=== PATIENT | male | born 1980 | race Asian ===

== ENCOUNTER 2024-10-29 07:11 | Inpatient (IN) | payer MEDICAID ==
[~2024-10-29] VITALS: Ht 167.6 cm; Wt 77.3 kg
[2024-10-29 07:30] LABS: PLATELET COUNT (AUTO) 338 K/uL (150-450); RED BLOOD CELL COUNT(AUTO) 6.23 MIL/uL (4.50-5.90); RED CELL DISTRIBUTION WIDTH 13.3 % (11.5-14.5); WHITE BLOOD COUNT (AUTO) 17.8 K/uL (4.5-11.0)
[2024-10-29 07:40] LABS: CALCIUM, TOTAL 9.4 mg/dL (8.8-10.5); CREATININE 1.4 mg/dL (0.60-1.30); GLOMERULAR FILTR. RATE CALC 55.0 mL/min (>60); GLUCOSE,RANDOM 141.0 mg/dL (70-110); SODIUM SERUM 135.0 mmol/L (136-145); UREA NITROGEN, BLOOD 17.0 mg/dL (7-18)
[2024-10-29 07:44] LABS: ASPARTATE AMINOTRANSFERASE 19.0 U/L (15-37); TOTAL PROTEIN, SERUM 8.7 g/dL (6.4-8.2)
[2024-10-29] MEDS ORDERED: IOHEXOL 350 MG/ML 100 ML VIAL ONE (07:51)
[2024-10-29] MEDS ORDERED: SODIUM CHLORIDE 0.9% 100 ML ONE (07:51)
[2024-10-29] MEDS: SODIUM CHLORIDE 0.9% 1,000 ML IV ONE ×2 (08:13→10:19)
[2024-10-29] MEDS: FAMOTIDINE 20 MG/2 ML VIAL IVP ONE (08:14)
[2024-10-29] MEDS: MORPHINE SULFATE 2 MG/ML SYRINGE IVP ONE ×2 (08:14→10:19)
[2024-10-29] MEDS: MAG HYDROX/ALUMINUM HYD/SIMETH 30 ML SUSPENSION UDCUP PO ONE (08:14)
[2024-10-29] MEDS: ONDANSETRON HCL 4 MG/2 ML VIAL IVP ONE (08:14)
[2024-10-29] MEDS: KETOROLAC TROMETHAMINE 30 MG/ML VIAL IVP ONE (08:14)
[2024-10-29] MEDS ORDERED: CefTRIAXone 1 GM/DEXTROSE 50 ML IV ONE (10:00)
[2024-10-29] MEDS ORDERED: ONDANSETRON HCL 4 MG/2 ML VIAL IVP PRN (10:15)
[2024-10-29] MEDS: SODIUM CHLORIDE 0.9% 1,300 ML IV ONE (10:18)
[2024-10-29] MEDS: PIPERACILLIN/TAZO 3.375 GM/D5W 50 ML IV ONE (10:18)
[2024-10-29 10:51] LABS: LACTIC ACID 2.3 mmol/L (0.4-2.0)
[2024-10-29] MEDS ORDERED: FentaNYL CITRATE PF 100 MCG/2 ML VIAL ONE (11:44)
[2024-10-29 13:48] VITALS: BP 150/79; PULSE 80; RESP 18; TEMP 97.5; O2SAT 100
[2024-10-29] MEDS ORDERED: MEBROFENIN TC99M/MCL ISOTOPE 1 EA INJ INJ ONE (14:30)
[2024-10-29] MEDS: MORPHINE SULFATE 2 MG/ML SYRINGE IVP PRN (14:58)
[2024-10-29] MEDS ORDERED: SODIUM CHLORIDE 0.9% 500 ML IV ONE (15:50)
[2024-10-29 15:52] VITALS: BP 149/84; PULSE 86; RESP 18; TEMP 98.8; O2SAT 96
[2024-10-29] MEDS: PIPERACILLIN/TAZO 3.375 GM/D5W 50 ML IV SCH (16:13)
[2024-10-29 20:11] VITALS: BP 152/90; PULSE 89; RESP 19; TEMP 100; O2SAT 98
[2024-10-29] MEDS: DOCUSATE SODIUM 100 MG CAPSULE PO SCH (20:52)
[2024-10-29] MEDS: POTASSIUM CHLORIDE 20 MEQ ER TABLET PO ONE (22:13)
[2024-10-29] MEDS: DEXTROSE 5%-LACTATED RINGERS 1,000 ML IV ONE (22:50)
[2024-10-30 04:55] VITALS: BP 150/97; PULSE 94; RESP 19; TEMP 100.6; TEMP 101.1; O2SAT 95
[2024-10-30] MEDS: ACETAMINOPHEN 325 MG TABLET PO PRN (05:15)
[2024-10-30] MEDS: PANTOPRAZOLE SODIUM 40 MG/VIAL IVP SCH (08:15)
[2024-10-30 08:31] VITALS: BP 141/93; PULSE 96; RESP 19; TEMP 99; O2SAT 99
[2024-10-30] MEDS ORDERED: SODIUM CHLORIDE 0.9% 1,000 ML ONE (08:54)
[2024-10-30] MEDS ORDERED: MEPERIDINE-PF 25 MG/ML VIAL IVP PRN (09:15)
[2024-10-30] MEDS ORDERED: FentaNYL CITRATE PF 100 MCG/2 ML VIAL IVP PRN (09:15)
[2024-10-30] MEDS: ETHYL ALCOHOL 62% ANTISEPTIC NASAL SANITIZER 0.6 ML AMPUL NASAL ONE (09:24)
[2024-10-30] MEDS: CHLORHEXIDINE GLUCONATE 2% TOWELETTE [2'S/6'S] TP ONE (09:24)
[2024-10-30] MEDS ORDERED: BUPIVACAINE HCL/PF 0.5% 30 ML VIAL ONE ×2 (09:34)
[2024-10-30] MEDS ORDERED: RINGERS SOLUTION,LACTATED 1,000 ML IV ONE (09:53)
[2024-10-30] MEDS: BUPIVACAINE HCL/PF 0.5% 10 ML VIAL ONE (10:03)
[2024-10-30] MEDS: LIDOCAINE/PF 2% 5 ML VIAL ONE (10:03)
[2024-10-30] MEDS ORDERED: IBUPROFEN 800 MG TABLET PO PRN (11:15)
[2024-10-30] MEDS ORDERED: MORPHINE SULFATE 2 MG/ML SYRINGE IVP PRN (11:15)
[2024-10-30] MEDS ORDERED: ACETAMINOPHEN 500 MG TABLET PO PRN (11:15)
[2024-10-30] MEDS ORDERED: HYDROCODONE/ACETAMINOPHEN 5-325 MG TABLET PO PRN (11:15)
[2024-10-30] MEDS ORDERED: LIDOCAINE/PF 2% 5 ML VIAL ONE (11:21)
[2024-10-30] MEDS ORDERED: SUGAMMADEX SODIUM 200 MG/2 ML VIAL IVP ONE (11:21)
[2024-10-30] MEDS ORDERED: PROPOFOL 1% 20 ML VIAL IVP ONE (11:21)
[2024-10-30] MEDS ORDERED: ONDANSETRON HCL 4 MG/2 ML VIAL ONE (11:21)
[2024-10-30] MEDS ORDERED: ROCURONIUM BROMIDE 10 MG/ML 5 ML VIAL ONE (11:21)
[2024-10-30] MEDS ORDERED: DEXAMETHASONE SOD PHOS 4 MG/ML VIAL ONE (11:21)
[2024-10-30] MEDS ORDERED: METOPROLOL TARTRATE 5 MG/5 ML VIAL ONE (11:21)
[2024-10-30 15:50] VITALS: BP 131/89; PULSE 100; RESP 18; TEMP 98.4; O2SAT 96
[2024-10-30 19:13] VITALS: BP 141/94; PULSE 101; RESP 18; TEMP 99.7; O2SAT 95
[2024-10-30] MEDS: OXYGEN THERAPY IH SCH (21:26)
[2024-10-30 21:30] VITALS: BP 142/89; PULSE 100; RESP 18; TEMP 98.1; O2SAT 94
[2024-10-31 04:04] VITALS: BP 123/87; PULSE 97; RESP 18; TEMP 97.9; O2SAT 95
[2024-10-31 06:28] LABS: PLATELET COUNT (AUTO) 278 K/uL (150-450); RED BLOOD CELL COUNT(AUTO) 5.29 MIL/uL (4.50-5.90); RED CELL DISTRIBUTION WIDTH 13.7 % (11.5-14.5); WHITE BLOOD COUNT (AUTO) 18.2 K/uL (4.5-11.0)
[2024-10-31 06:42] LABS: CALCIUM, TOTAL 9.0 mg/dL (8.8-10.5); CREATININE 1.29 mg/dL (0.60-1.30); GLOMERULAR FILTR. RATE CALC > 60 mL/min (>60); GLUCOSE,RANDOM 134 mg/dL (70-110); SODIUM SERUM 136 mmol/L (136-145); UREA NITROGEN, BLOOD 14 mg/dL (7-18)
[2024-10-31 07:29] LABS: RBC MORPHOLOGY COMMENT NORMAL RBC MORPH
[2024-10-31 08:38] VITALS: BP 138/93; PULSE 99; RESP 18; TEMP 98.4; O2SAT 95
[2024-10-31 16:33] VITALS: BP 138/88; PULSE 102; RESP 18; TEMP 99.1; O2SAT 95
[2024-10-31 20:16] VITALS: BP 142/99; PULSE 94; RESP 18; TEMP 98.6; O2SAT 96
[2024-11-01 04:56] VITALS: BP 127/83; PULSE 80; RESP 18; TEMP 98.4; O2SAT 95
[2024-11-01 06:50] LABS: PLATELET COUNT (AUTO) 286 K/uL (150-450); RED BLOOD CELL COUNT(AUTO) 5.36 MIL/uL (4.50-5.90); RED CELL DISTRIBUTION WIDTH 13.6 % (11.5-14.5); WHITE BLOOD COUNT (AUTO) 10.4 K/uL (4.5-11.0)
[2024-11-01 06:58] LABS: CALCIUM, TOTAL 8.4 mg/dL (8.8-10.5); CREATININE 1.44 mg/dL (0.60-1.30); GLOMERULAR FILTR. RATE CALC 54.0 mL/min (>60); GLUCOSE,RANDOM 90.0 mg/dL (70-110); SODIUM SERUM 137.0 mmol/L (136-145); UREA NITROGEN, BLOOD 18.0 mg/dL (7-18)
[2024-11-01 08:23] VITALS: BP 137/94; PULSE 72; RESP 18; TEMP 97.9; O2SAT 96
[2024-11-01 19:39] VITALS: BP 145/95; PULSE 74; RESP 20; TEMP 98.6; O2SAT 96
[2024-11-02 04:44] VITALS: BP 131/87; PULSE 79; RESP 18; TEMP 97.5; O2SAT 94
[2024-11-02 07:55] VITALS: BP 137/92; PULSE 67; RESP 18; TEMP 97.7; O2SAT 95
[2024-11-02] MEDS ORDERED: AMOX1TAB15 PO (08:20)
== END 2024-11-02 15:33 | disposition home or self-care (01) | DRG 263 ==
LOC: EMS 07:11 → EDH 10:09 → 6N 11:58 → 4E 10-31 17:45
PROVIDERS: ADMIT Internal Medicine; ATTEND Internal Medicine
PROC: 0FT44ZZ Resection of Gallbladder, Percutaneous Endoscopic Approach (ICD-10-PCS; principal; 2024-10-30 09:45)
DX: K81.0 Acute cholecystitis (principal); K82.A1 Gangrene of gallbladder in cholecystitis; N17.9 Acute kidney failure, unspecified; R65.10 Systemic inflammatory response syndrome (SIRS) of non-infectious origin without acute organ dysfunction; I10 Essential (primary) hypertension; L02.91 Cutaneous abscess, unspecified
CPT/HCPCS: 74177; 76705; 78226; 80048; 80076; 83605; 83690; 85025; 87040; 88304; 96361; 96374; 96375; 99285; A9537; G0238; G0378; J1100; J1885; J2270; J2405; J2470; J2543; J2704; J3010; J3490; J7030; J7040; J7050; J7120; 36415-L1; 36415-TC; Z7610